=== PATIENT | male | born 1980 | race Caucasian/White ===

== ENCOUNTER 2022-05-28 11:49 | Outpatient (CLI) | payer OTHER, MEDICAID, SELFPAY ==
[2022-05-28 14:41] LABS: Basophils Absolute Auto 0.06 K/uL (0.00-0.30); Eosinophils Absolute Auto 0.16 K/uL (0.00-0.50); Eosinophils Percent Auto 2.8 % (0.0-7.0); Hematocrit 42.9 % (37.0-53.0); Hemoglobin* 14.6 gm/dL (13.5-17.5); Immature Granulocytes Abs Auto 0.01 K/uL (0.00-0.30); Immature Granulocytes Pct Auto 0.2 %; Lymphocytes Absolute Auto 1.94 K/uL (0.90-2.90); Lymphocytes Percent Auto 33.9 % (20-44); Mean Corpuscular HGB Conc 34 gm/dL (32-36); Mean Corpuscular Hemoglobin 29 pg (26-34); Mean Corpuscular Volume 84 fL (80-100); Monocytes Percent Auto 10.5 % (0.0-11.0); Neutrophils Absolute Auto 2.96 K/uL (1.7-7.0); Neutrophils Percent Auto 51.6 % (42.0-72.0); Platelet Count* 236 K/uL (140-440); RDW Coefficient of Variation % 11.7 % (11.5-15.5); Red Blood Count 5.11 m/uL (4.30-5.90); White Blood Count* 5.73 K/uL (4.50-11.00)
[2022-05-28 14:42] LABS: Slide Review Reflex No
[2022-05-28 14:54] LABS: Chloride* 103 mmol/L (96-114); Potassium* 4.8 mmol/L (3.6-5.1); Sodium* 139 mmol/L (135-149)
[2022-05-28 14:56] LABS: Cholesterol* 251 mg/dL (90-199)
[2022-05-28 14:57] LABS: Blood Urea Nitrogen* 19 mg/dL (5-24); Calcium* 9.7 mg/dL (8.4-10.6); Carbon Dioxide* 27 mmol/L (20-32); Estimated Glomerular Filt Rate 96 ml/min; Glucose* 82 mg/dL (60-115); HDL Cholesterol* 45 mg/dL (>=40); LDL Cholesterol Calculated 139 mg/dL (<100); Triglycerides* 335 mg/dL (40-149)
== END 2022-05-28 11:50 | disposition home or self-care (01) ==
PROVIDERS: PCP Family Medicine; Visit Provider Family Medicine
DX: Z00.00 Encounter for general adult medical examination without abnormal findings (principal); K21.9 Gastro-esophageal reflux disease without esophagitis; R53.83 Other fatigue; Z13.6 Encounter for screening for cardiovascular disorders
CPT/HCPCS: 80048; 80061; 84443; 85025

== ENCOUNTER 2023-06-01 10:14 | Outpatient (CLI) | payer OTHER, MEDICAID, SELFPAY | END 2023-06-01 10:15 | disposition home or self-care (01) | LOC: FBOREF 10:15 | PROVIDERS: PCP Family Medicine; Visit Provider Family Medicine | DX: E78.2 Mixed hyperlipidemia (principal) | CPT/HCPCS: 80061 ==

== ENCOUNTER 2024-06-22 10:31 | Outpatient (CLI) | payer OTHER, SELFPAY | END 2024-06-22 10:32 | disposition home or self-care (01) | PROVIDERS: PCP Family Medicine; Visit Provider Family Medicine | DX: E78.2 Mixed hyperlipidemia (principal) | CPT/HCPCS: 80048; 80061 ==

== ENCOUNTER 2025-05-01 14:02 | Outpatient (CLI) | payer OTHER, SELFPAY | END 2025-05-01 14:03 | disposition home or self-care (01) | PROVIDERS: PCP Family Medicine; Visit Provider Family Medicine | DX: E78.2 Mixed hyperlipidemia (principal) | CPT/HCPCS: 80048; 80061 ==